=== PATIENT | male | born 1980 | race Caucasian/White ===

== ENCOUNTER → 2017-08-05 | Outpatient (REF) | payer BC | LOC: M LAB REF 09:13 | DX: J02.9 Acute pharyngitis, unspecified (principal) | CPT/HCPCS: 87077 ==

== ENCOUNTER → 2017-09-29 | Outpatient (CLI) | payer BC | LOC: M SLEEP HO 13:26 | DX: G47.30 Sleep apnea, unspecified (principal) | CPT/HCPCS: G0399 ==

== ENCOUNTER → 2017-11-12 | Outpatient (CLI) | payer BC | LOC: M SLEEP 06:51 | DX: G47.33 Obstructive sleep apnea (adult) (pediatric) (principal) | CPT/HCPCS: 95811 ==